=== PATIENT | female | born 2000 | race American Indian/Alaskan Native ===

== ENCOUNTER 2024-12-10 14:56 | Emergency (ER) | payer SELFPAY ==
--- NOTE | 2024-12-10 14:57 | ED_ITS ---
HPI - Dental/Oral General Chief complaint: Dental/Oral Stated complaint: tooth pain Time Seen by Provider: 12/10/24 15:06 Source: patient, RN notes reviewed and old records reviewed Mode of arrival: ambulatory Limitations: no limitations History of Present Illness HPI Narrative: 24-year-old female presents to [facility] with dental pain to the right upper middle molar. Patient reports that it started yesterday. Has a significantly decayed tooth. Has not been to a dental provider in many years. Treatment prior to arrival: topical analgesic Related Data Allergies Allergy/AdvReac Type Severity Reaction Status Date / Time No Known Allergies Allergy Verified 12/10/24 15:06 Review of Systems 2 Review of Systems: All systems reviewed & are unremarkable except as noted in HPI and below Constitutional: Constitutional: Reports no additional constitutional complaints ENT: Reports as per HPI and Reports dental pain Integumentary/Breasts: Skin/Breast: Reports system reviewed and no additional complaints, except as docu PMFSH Comments At the time of my signature, I reviewed and agree with the nursing past medical, surgical, social, and family history. There is no relevant family history pertinent to the patient complaint. Exam 2 Const: General: cooperative, healthy appearing, no acute distress, well developed, alert, uncomfortable and well nourished Nutritional Appearance: w ell nourished Orientation/consciousness: patient oriented x3 Limitations: no limitations HENMT: Head: normal to inspection Ears: hearing grossly normal bilaterally and external ears normal Mouth: Yes Normal oral and palatal mucosa present, Yes lip normal, Yes tongue normal and Yes moist mucous membranes Teeth and gingiva: abnormal tooth and associated gingiva upper right second molar tender and with associated gingival edema and fair dentition Teeth image: 1. decayed. Surrounding gingival erythema, swelling Throat: posterior oropharynx normal, uvula midline and no uvular edema Eyes: General: appearance normal, both eyes and all related structures A lignment and Position: alignment normal Neck: Neck: normal visual inspection, full ROM, no lymphadenopathy and no meningeal signs Chest: Chest palpation & inspection: normal inspection of the chest Resp: Effort & Inspection: normal respiratory effort and able to speak in complete sentences Cardio: Rate: regular rate Skin: General skin exam: normal color and no rashes or lesions noted Neuro: General: patient oriented x3, gait normal, moves all extremities and no meningeal signs Cognition (Neuro): normal cognition Speech: normal speech Gait exam (Neuro): Normal gait present Extrem: General: normal to inspection, full ROM, capillary refill normal and normal gait Psych: Appearance: grossly normal and well kempt Mental Status: mental status grossly normal Speech and movement: Normal speech and movement present and Clear speech present Affect: normal affect Attitude: cooperative Course Course Level of Care: Express Care Visit Vital Signs Vital signs: Vital Signs Temperature 97.2 F L 12/10/24 15:06 Pulse Rate 93 12/10/24 15:06 Respiratory Rate 18 12/10/24 15:06 Blood Pressure 119/66 12/10/24 15:06 Pulse Oximetry 100 12/10/24 15:06 Oxygen Delivery Room Air 12/10/24 15:06 Temperature 97.2 F L 12/10/24 15:06 Pulse Rate 93 12/10/24 15:06 Respiratory Rate 18 12/10/24 15:06 Blood Pressure 119/66 12/10/24 15:06 Pulse Oximetry 100 12/10/24 15:06 Oxygen Delivery Room Air 12/10/24 15:06 Reviewed MDM - Dental/Oral MDM Narrative Medical decision making narrative: Patient sitting in exam room. Patient is nontoxic however appears uncomfortable. Vitals are stable. Patient presents with right upper dental discomfort Significant dental decay is noted. Patient prescribed antibiotics, list of dental providers given. Patient appropriate for outpatient treatment and follow-up Discharge instructions reviewed with patient, as well as provided in writing per nursing staff. The instructions also include specific and strict return/GO TO THE ER as well as f/u information. All questions have been answered, and the patient deny any further questions with discharge and discharge plan. Some parts of this dictation were generated by voice recognition software and may contain typographical and/or grammatical inaccuracies. Differential Diagnosis Differential diagnosis: Likely gingival abscess, dental caries, toothache, dental abscess, fracture of tooth and aphthous ulcer Critical Care Time Critical Care Time Critical Care Time: No Discharge Plan Discharge Clinical Impression: Dental decay, Dental abscess Patient Disposition: Home Condition: Stable Instructions: Antibiotic Form, Dental Abscess (ED) Additional Instructions: Finish the entire course of antibiotics & use a mouthwash. After every time you eat be sure to use salt water rinses. Apply ice to face to help with pain. Take Tylenol 500mg alternating with Motrin 600mg as needed for pain. You can alternate every 4 hours You need to follow-up with a dental provider as soon as possible for further evaluation and treatment. A list of dental providers has been given to you Follow up with a Primary Care Provider (PCP) about medical needs. A PCP can help keep you healthy by preventive medicine and screening. Go to the ER for New or worsening symptoms. Patient Language: Macedonian Prescriptions: New amoxicillin 875 mg tablet 875 mg PO Q12H Qty: 20 0RF Follow-up/Referrals: UNKNOWN,DOCTOR [Primary Care Provider] - Stand Alone Forms: Work/School Release IP Time of Disposition: 15:12
--- OUTSIDE RECORDS SUMMARY | 2024-12-10 15:03 | XMS_ITS | Encounter Summary ---
Author Organization [facility] [employer] [facility] Address [address] [place] [address] [address] Kathy Gomez, [place] [address] Care Team Providers Care Assistant Chief Nursing Officer Name Role Phone Provider, No Attributed RESOURCE Unavailable Unavailable Sharlene Felix DO Primary Care Provider Harsha Pierre MD Unavailable Vidya Wolf MD Unavailable [phone] Provider, No Attributed RESOURCE Unavailable Unavailable Encounter Details Date Type Department Care Team (Late st Contact Info) Description 08/13/2020 Lab Requisition [facility] Kathy Gomez [place] Don Castaneda MD [address] [place] [address] Social History Tobacco Use Types Packs/Day Years Used Date Smoking Tobacco: Passive Smo ke Exposure - Never Smoker Smokeless Tobacco: Never Alcohol Use Standard Drinks/Week Comments No 0 (1 standard drink = 0.6 oz pur e alcohol) Sexually Active Control Partners Comments Never Comments No Sex and Gender Information Value Date Recorded Sex Assigned at Not on file Legal Sex Female 4:22 AM CDT Gender Identity Not on file Sexual Orientation Not on file documented as of this encounter Plan of Treatment Not on file documented as of this encounter Procedures Procedure Name Priority Date/Time Associated Diagnosis Comments HEPATITIS B SURFACE ANTIBODY, IMMUNE STATUS Routine 08/13/2020 1:33 PM WALL MAN documented in this encounter Results * HEPATITIS B SURFACE ANTIBODY (08/13/2020 1:33 PM WALL MAN) HBs Antibody 297.3 mIU/mL 08/13/2020 11:51 PM WALL MAN [facility] Blood BLOOD SPECIMEN / Unknown 08/13/2020 1:33 PM WALL MAN 08/13/2020 3:12 PM WALL MAN Narrative [facility] - 08/13/2020 11:51 PM WALL MAN Reference Ranges: <8.0 mIU/mL Individual is not considered immune to HBV infection. 8.0 - 11.9 mIU/mL The immune status of the individual should be further assessed by considering other factors, such as clinical status, follow-up testing, associated risk factors, and use of additional diagnostic information. >/=12.0 mIU/mL Individual is considered immune to HBV infection. us Don Castaneda MD LAB BLOOD Final Res ult [facility] [address] [place] [address] documented in this encounter Visit Diagnoses Not on filedocumented in this encounter Care Teams Assistant Chief Nursing Officer Relationship Specialty Start Date End Date Provider, No Attributed, RESOURCE [address] PCP - Attributed Provider 05/20/16 08/12/22 Sharlene Felix DO [address], [place] [id number] PCP - General 06/13/19 Vidya Wolf MD [address] [place] [id number] PCP - Attributed Provider 08/13/22 08/12/24 Provider, No Attributed, RESOURCE [address] PCP - Attributed Provider 08/13/24 Harsha Pierre MD [address] [place] [address] Primary Oncologist Hematology and Oncology (Internal Medicine) 08/05/22 documented as of this encounter
--- OUTSIDE RECORDS SUMMARY | 2024-12-10 15:03 | XMS_ITS | Encounter Summary ---
Author Organization [facility] Address [address] [place] [address] [address] Kathy [place] [address] Care Team Providers Care Digital Content Marketing Manager Name Role Phone Provider, No Attributed RESOURCE Unavailable Unavailable Sharlene Felix DO Primary Care Provider Harsha Pierre MD Unavailable [phone] Vidya Wolf MD Unavailable [phone] Provider, No Attributed RESOURCE Unavailable Unavailable Encounter Details Date Type Department Care Team (Late st Contact Info) Description 04/05/2020 Lab Requisition [facility] Patient Financial Services [place] Holman Clayton G, MD [address] [place] [address] Social History Tobacco Use Types Packs/Day Years [...] Procedure Name Priority Date/Time Associated Diagnosis Comments SARS-COV-2 RNA, QUALITATIVE REAL-TIME RT-PCR Routine 04/04/2020 12:06 PM CDT documented in this encounter Results * SARS-COV-2 RNA, QUALITATIVE REAL-TIME RT-PCR (04/04/2020 12:06 PM CDT) SARS-CoV-2 Specimen Source Nasopharynx 04/07/2020 7:56 PM CDT [facility] Patient Race Unknown 04/07/2020 7:56 PM CDT [facility] Patient Ethnicity Unknown 04/07/2020 7:56 PM CDT [facility] SARS-CoV-2 RNA Undetected Undetected 04/07/2020 7:56 PM CDT [facility] Comment: SARS-CoV-2 RNA absent. This result does not rule out COVID-19 in the patient, as the sensitivity of the test depends on the timing of the specimen collection and the quality of the specimen. Result should be correlated with patient's history and clinical presentation. Method Summary See Comments 04/07/20 7:56 PM CDT [facility] Comment: CECI- This test uses the ceci SARS-CoV-2 assay ([employer] and is performed on the ceci [employer] System. It has received Emergency Use Authorization (EUA) by the U.S. Food and Drug Administration. Performance characteristics were verified by [facility] in a manner consistent with CLIA requirements. Fact sheets for this Emergency Use Authorization (EUA) can be found at the following links: https://www.fda.gov/media/817431/download for Healthcare Providers https://www.fda.gov/media/393024/download for Patients Test Performed by: [facility] - [address] [address] Drag Down: Vaughn Ugarte M.D. Ph.D.; CLIA# [id number] Respiratory ENTIRE NASOPHARYNX / Unknown 04/04/2020 12:06 PM CDT 04/05/2020 12:15 PM CDT us Don Castaneda MD LAB NON BLOOD Final Res ult [facility] [address] [place] [address] documented in this encounter Visit Diagnoses Not on filedocumented in this encounter Additional Health Concerns Infection Onset Date Last Indicated Resolved Time COVID-19 04/10/2020 04/10/2020 04/20/2020 11:5 6 PM CDT documented as of this encounter Care Teams Digital Content Marketing Manager Relationship Specialty Start Date End Date Provider, No Attributed, RESOURCE [address] PCP - Attributed Provider 05/20/16 08/12/22 Sharlene Felix DO [address] [facility], [place] [id number] PCP - General 06/13/19 Vidya Wolf MD [address] [facility], [place] [id number] PCP - Attributed Provider 08/13/22 08/12/24 Provider, No Attributed, RESOURCE [address] PCP - Attributed Provider 08/13/24 Harsha Pierre MD [address] [place] [address] Primary Oncologist Hematology and Oncology (Internal Medicine) 08/05/22 documented as of this encounter
--- OUTSIDE RECORDS SUMMARY | 2024-12-10 15:03 | XMS_ITS | Clinical Summary ---
Author Organization [employer] [facility] Address [address] [place] [address] [address] [place] [address] Care Team Providers Care Supervisor Keymodule Assembly Name Role Phone FelixSharlene gan Primary Care Provider Harsha Pierre MD Unavailable [phone] Provider, No Attributed RESOURCE Unavailable Unavailable Allergies Active Allergy Reactions Criticality Noted Date Comments Fragrances Hives (High) High 11/14/2021 Nickel Rash Low 11/14/2021 Medications ibuprofen (ADVIL;MOTRIN-I B) 200 mg tablet Take 200 mg by mouth Every 4 hours as needed. Active ferrous sulfate (65 MG FE PER 325 MG TABLET) 325 mg tablet Take 325 mg by mouth 2 times a day Active desogestrel-eth inyl estradiol (GYJYT-UHHZ-79) 0.15 mg-30 mcg tablet 08/16/2020 Active cyanocobalamin (VITAMIN B-12) 1000 MCG sublingual tabletIndicatio ns:Low serum vitamin B12 Dissolve 1 tablet (1,000 mcg) under the tongue 1 time per day 30 tablet 11 08/06/2022 Active Active Problems Problem Noted Date Diagnosed Date Prolonged pt (prothrombin time) 08/06/2022 Low serum vitamin B12 08/06/2022 Iron deficiency anemia due to chronic blood loss 08/03/2022 Menorrhagia with regular cycle 07/31/2022 Iron deficiency anemia 11/21/2021 Anemia, unspecified 10/17/2021 Resolved Problems Problem Noted Date Diagnosed Date Resolved Date Menometrorrhagia 11/21/2021 07/31/2022 Microcytic hypochromic anemia 11/21/2021 07/31/2022 Acute posthemorrhagic anemia 10/17/2021 07/31/2022 Excessive and frequent menst ruation with irregular cycle 10/17/2021 07/31/2022 Immunizations Immunization Administration Dates Next Due DTaP(Infanrix) 02/10/2005, 2,02/25/2001,12/29,2000 HEP B, peds/adol 02/25/2001,2000, 1 HEP B,adult 09/07/2019 HIB,unspecified 12/24/2001, 1,2000,10/01 Hep A, Unspecified 05/09/2009,05/09/2009, 005 INFLUENZA SINGLE DOSE 0.5ML 6 MONTHS AND UP 07/03/2023,05/08/2022 INFLUENZA VACCINE ADJUVANT(F LUAD) 65 YEARS AND UP 07/03/2023 IPV 02/10/2005, 2,2000,10/01 Influenza Vaccine,unspecified 05/16/2020 ,08/08/2019,07/29/2011,05/13,05/09/2009 MMR 02/10/2005,12/24/2001 Meningococcal MCV40(Menveo) 03/09/2017 Moderna COVID-19 Vaccine (Re d Top)12 years and up 07/11/2021,06/10/2021 Pneumococcal Conjugate, Unspecified 02/25/2001,0 01/05/2001,2000 TDAP 03/09/2017 Tuberculin Skin Test PPD Intradermal 02/10/2005 Varicella 07/29/2011,12/24/2001 Family History Medical History Relation Comments Diabetes Brother Thyroid Disease Father Other Mother anemia, aub hyst erectomy Hypertension Sister Relation Status Comments Brother Alive Father Alive Maternal Grandfather Maternal Grandmother Mother Alive Paternal Grandfather Paternal Grandmother Sister Alive Social History Tobacco Use Types Packs/Day Years Used Date Smoking Tobacco: Former Cigarettes Smokeless Tobacco: Never Tobacco Cessation:Counseling Given: Not Answered Comments:Quit fall 2021 Alcohol Use Standard Drinks/Week Comments Yes 0 (1 standard drink = 0.6 oz pur e alcohol) occasional AUDIT-C Answer Date Recorded Q1: How often do you have a drink containing alc ohol? 2-4 times a month 02/07/2021 Q2: How many drinks containi ng alcohol do you have on a typical day when you are drinking? 3 or 4 02/07/2021 Q3: How often do you have si x or more drinks on one occasion? Less than monthly 02/07/2021 Sexually Active Control Partners Comments Yes Male not using contr aception Comments No Sex and Gender Information Value Date Recorded Sex Assigned at Not on file Legal Sex Female 4:22 AM CDT Gender Identity Not on file Sexual Orientation Not on file Occupation Industry Job Start Date Job End Date works at [employer]- working on [employer] Not on file Not on file Not on file Last Filed Vital Signs Vital Sign Reading Time Taken Comments Blood Pressure 102/62 08/07/2022 1:25 PM RENEWABLE ENERGY PROJECT MANAGER Pulse 74 08/07/2022 1:25 PM RENEWABLE ENERGY PROJECT MANAGER Temperature 36.2 C (97.1 F) 08/07/2022 1:25 PM RENEWABLE ENERGY PROJECT MANAGER Respiratory Rate 16 08/07/2022 1:25 PM RENEWABLE ENERGY PROJECT MANAGER Oxygen Saturation 99% 08/07/2022 1:25 PM RENEWABLE ENERGY PROJECT MANAGER Inhaled Oxygen Concentration - - Weight 81.6 kg (180 lb) 08/06/2022 8:09 AM RENEWABLE ENERGY PROJECT MANAGER Height 157.5 cm (5' 2 ) 08/06/2022 8:09 AM RENEWABLE ENERGY PROJECT MANAGER Body Mass Index 32.92 08/06/2022 8:09 AM RENEWABLE ENERGY PROJECT MANAGER Plan of Treatment Health Maintenance Due Date Last Done Comments Hepatitis C Screening 2000 HIV One Time Screening Ages 15-65 2015 HPV Vaccine (1 - 3-dose series) 2015 Lipid Screening 2021 Chlamydia Screening if Sexually Active 07/31/2023 07/31/2022 Pap Smear 07/31/2023 07/31/2022 Covid-19 Vaccine ( - season) 2024 07/11/2021, 06/10/2021 Influenza Vaccine (#1) 2024 , 07/03/2023, 05/08/2022, Additional history exists TDAP/TD VACCINE (2 - Td or Tdap) 03/09/2027 03/09/2017 Pneumococcal Vaccine (0-5yr; and At-risk 6-49yr) Aged Out 02/25/2001, 01/05/2001, 2000 No longer eligible based on patient's age to complete this topic Hepatitis B Vaccine Completed 09/07/2019, 02/25/2001, 2000, Additional history exists Procedures Procedure Name Priority Date/Time Associated Diagnosis Comments CHLAMYDIA AND NEISSERIA GONORRHEA NUCLEIC ACID DETECTION Routine 07/31/2022 2:23 PM RENEWABLE ENERGY PROJECT MANAGER Iron deficiency anemia due to chronic blood loss LIQUID BASED PAP TEST Routine 07/31/2022 1:44 PM RENEWABLE ENERGY PROJECT MANAGER Iron deficiency anemia due to chronic blood loss from Last 3 Months or Most Recently Relevant to Health Maintenance Results * CHLAMYDIA AND NEISSERIA GONORRHEA NUCLEIC ACID DETECTION (07/31/2022 2:23 PM RENEWABLE ENERGY PROJECT MANAGER) C. trachomatis Nuc. Acid Not Detected Not Detected [employer] YFLL[employer]RVP[employer] ([facility]) 08/01/2022 12:23 PM RENEWABLE ENERGY PROJECT MANAGER [facility] N. gonorrhea Nuc. Acid Not Detected Not Detected [employer] BXKI-YOA-3_L [employer] ([facility]) 08/01/2022 12:23 PM RENEWABLE ENERGY PROJECT MANAGER [facility] Misc SPECIMEN FROM UTERINE CERVIX / Unknown 07/31/2022 2:23 PM RENEWABLE ENERGY PROJECT MANAGER 07/31/2022 2:23 PM RENEWABLE ENERGY PROJECT MANAGER Narrative [facility] - 08/01/2022 12:23 PM RENEWABLE ENERGY PROJECT MANAGER This test was performed by polymerase chain reaction (PCR) on the Jayme 6800 instrument. us Vidya Wolf MD LAB NON BLOOD Final Result [facility] [address] [facility], [place] [id number] * (ABNORMAL) LIQUID BASED PAP TEST (07/31/2022 1:44 PM RENEWABLE ENERGY PROJECT MANAGER) TRANSIT PLANNING DIRECTOR General Categorization Epithelial cell abnormality(A) 08/07/2022 8:40 AM [facility] TRANSIT PLANNING DIRECTOR Interpretation Low grade squamous intraepithelial lesion(A) 08/07/2022 8:40 AM [facility] at 0840 RENEWABLE ENERGY PROJECT MANAGER TRANSIT PLANNING DIRECTOR SPECIMEN ADEQUACY Satisfactory for evaluation, endocervical/transf ormation zone component present 08/07/2022 8:40 AM [facility] TRANSIT PLANNING DIRECTOR Automated Examination ThinPrep - Imaged 08/07/2022 8:40 AM [facility] CASE REPORT Gynecologic Cytology Report Case: [id number] Authorizing Provider: Vidya Wolf MD Collected: 07/31/2022 1344 Ordering Location: [facility] Received: 08/01/2022 0605 First Screen: Gavi Holloway Pathologist: Thuy Kaur MD Specimen: LIQUID-BASED PAP SMEAR, Cervical and Endocervical 08/07/2022 8:40 AM [facility] Reflex Testing? No HPV (recommended ages 21-24) 08/07/2022 8:40 AM [facility] Disclaimer This case met the criteria for Pathologist review. The Pap test is a screening test with an inherent, irreducible false negative and false positive rate. A negative result does not exclude the possibility of clinical disease. Regular, routine screening is recommended. All gynecologic cytology is screened by cytotechnologists located at [facility] - [address] [place] [id number]; [facility] - [address], [address] [place] [phone]; [facility] Pathology [facility] - [address] [phone]; or [facility] Pathology - [address] [address]. 08/07/2022 8:40 AM [facility] EMBEDDED IMAGES 8:40 AM [facility] Not Applicable ENDOCERVICAL STRUCTURE / Unknown 07/31/2022 1:44 PM RENEWABLE ENERGY PROJECT MANAGER 08/01/2022 6:05 AM RENEWABLE ENERGY PROJECT MANAGER Comment:Menstrual Status: Tung don's last menstrual period was 07/07/2022. us Vidya Wolf MD PATHOLOGY Final Result [facility] [address] [place] [phone] from Last 3 Months or Most Recently Relevant to Health Maintenance Care Teams Supervisor Keymodule Assembly Relationship Specialty Start Date End Date Sharlene Felix DO [address] [place] [address] PCP - General 06/13/19 Provider, No Attributed, RESOURCE [address] PCP - Attributed Provider 08/13/24 Harsha Pierre MD [address] [facility] [place] [address] Primary Oncologist Hematology and Oncology (Internal Medicine) 08/05/22
--- OUTSIDE RECORDS SUMMARY | 2024-12-10 15:03 | XMS_ITS | Encounter Summary ---
Author Organization [facility] Address [address] [place] [address] [address] Kathy [place] [address] Care Team Providers Care Matrix Bath Operator Name Role Phone Provider, No Attributed RESOURCE Unavailable Unavailable Sharlene Felix DO Primary Care Provider Harsha Pierre MD Unavailable [phone] Vidya Wolf MD Unavailable [phone] Provider, No Attributed RESOURCE Unavailable Unavailable Encounter Details Date Type Department Care Team (Late st Contact Info) Description 03/29/2020 Lab Requisition [facility] Patient Financial Services [place] Holman Clayton G, MD [address] [place] [address] Social History Tobacco Use Types Packs/Day Years [...] Comments SARS-COV-2 RNA, QUALITATIVE REAL-TIME RT-PCR Routine 03/29/2020 3:00 PM CDT documented in this encounter Results * SARS-COV-2 RNA, QUALITATIVE REAL-TIME RT-PCR (03/29/2020 3:00 PM CDT) SARS-CoV-2 Specimen Source Nasopharynx 04/01/2020 4:55 AM CDT [facility] Patient Race Unknown 04/01/2020 4:55 AM CDT [facility] Patient Ethnicity Unknown 04/01/2020 4:55 AM CDT [facility] SARS-CoV-2 RNA Undetected Undetected 04/01/2020 4:55 AM CDT [facility] Comment: SARS-CoV-2 RNA absent. This result does not rule out COVID-19 in the patient, as the sensitivity of the test depends on the timing of the specimen collection and the quality of the specimen. Result should be correlated with patient's history and clinical presentation. Method Summary See Comments 04/01/20 20 4:55 AM CDT [facility] Comment: CECI- This test uses the ceci SARS-CoV-2 assay ([employer] and is performed on the ceci yavalu0 System. It has received Emergency Use Authorization (EUA) by the U.S. Food and Drug Administration. Performance characteristics were verified by [facility] in a manner consistent with CLIA requirements. Fact sheets for this Emergency Use Authorization (EUA) can be found at the following links: https://www.fda.gov/media/229689/download for Healthcare Providers https://www.fda.gov/media/125379/download for Patients Test Performed by: [facility] - [address] [address] Rustic Fence Builder: Vaughn Ugarte M.D. Ph.D.; CLIA# [id number] Respiratory ENTIRE NASOPHARYNX / Unknown 03/29/2020 3:00 PM CDT 03/29/2020 11:26 PM CDT us Don Castaneda MD LAB NON BLOOD Final Res ult [facility] [address] [place] [address] documented in this encounter Visit Diagnoses Not on filedocumented in this encounter Additional Health Concerns Infection Onset Date Last Indicated Resolved Time COVID-19 04/10/2020 04/10/2020 04/20/2020 11:5 6 PM CDT documented as of this encounter Care Teams Matrix Bath Operator Relationship Specialty Start Date End Date Provider, No Attributed, RESOURCE [address] PCP - Attributed Provider 05/20/16 08/12/22 Sharlene Felix DO [address] [facility], [place] [id number] PCP - General 06/13/19 Vidya Wolf MD [address] [facility], [place] [id number] PCP - Attributed Provider 08/13/22 08/12/24 Provider, No Attributed, RESOURCE [address] PCP - Attributed Provider 08/13/24 Harsha Pierre MD [address] [place] [address] Primary Oncologist Hematology and Oncology (Internal Medicine) 08/05/22 documented as of this encounter
--- OUTSIDE RECORDS SUMMARY | 2024-12-10 15:03 | XMS_ITS | Encounter Summary ---
Author Organization [facility] Study [facility] Address [address] [place] [address] [address] [place] [address] Care Team Providers Care Pool Player Name Role Phone Provider, No Attributed RESOURCE Unavailable Unavailable Sharlene Felix DO Primary Care Provider Harsha Pierre MD Unavailable Vidya Wolf MD Unavailable [phone] Provider, No Attributed RESOURCE Unavailable Unavailable Encounter Details Date Type Department Care Team (Late st Contact Info) Description 04/11/2020 Lab Requisition [facility] Patient Financial Services [place] Holman Clayton G, MD [address] [place] [address] Social History Tobacco Use Types Packs/Day Years [...] Comments SARS-COV-2 RNA, QUALITATIVE REAL-TIME RT-PCR Routine 04/10/2020 4:00 PM CDT documented in this encounter Results * (ABNORMAL) SARS-COV-2 RNA, QUALITATIVE REAL-TIME RT-PCR (04/10/2020 4:00 PM CDT) SARS CoV RNA, RT PCR Detected( A) Not Detected 04/12/2020 5:47 PM CDT [facility] Respiratory ENTIRE NASOPHARYNX / Unknown 04/10/2020 4:00 PM CDT 04/11/2020 3:55 PM CDT Narrative [facility] - 04/12/2020 5:47 PM CDT Testing performed by real-time polymerase chain reaction (RT-PCR) on the [employer] instrument. This assay is for in vitro diagnostic use under FDA Emergency Use Authorization only. Optimal performance of this test requires appropriate specimen collection, storage, and transport to the test site. Detection of SARS-CoV-2 RNA may be affected by sample collection methods, patient factors (eg, presence of symptoms), and/or stage of infection. False-negative results may arise from degradation of viral RNA during shipping/storage. Results should be interpreted by a trained professional in conjunction with the patient s history and clinical signs and symptoms, and epidemiological risk factors. Negative (Not Detected) results do not preclude infection with the SARS-CoV-2 virus and should not be the sole basis of patient treatment/management or public health decision. Follow up testing should be performed according to the current CDC recommendations. Don Castaneda MD LAB NON BLOOD Final Res ult [facility] [address] [place] [address] documented in this encounter Visit Diagnoses Not on filedocumented in this encounter Additional Health Concerns Infection Onset Date Last Indicated Resolved Time COVID-19 04/10/2020 04/10/2020 04/20/2020 11:5 6 PM CDT documented as of this encounter Care Teams Pool Player Relationship Specialty Start Date End Date Provider, No Attributed, RESOURCE [address] PCP - Attributed Provider 05/20/16 08/12/22 Sharlene Felix DO [address] [place] JIMENEZ [id number] PCP - General 06/13/19 Vidya Wolf MD [address] [facility] TACO STRATTON TONY, M[place] [id number] PCP - Attributed Provider 08/13/22 08/12/24 Provider, No Attributed, RESOURCE [address] PCP - Attributed Provider 08/13/24 Harsha Pierre MD [address] [place], [place] [phone] Primary Oncologist Hematology and Oncology (Internal Medicine) 08/05/22 documented as of this encounter
--- OUTSIDE RECORDS SUMMARY | 2024-12-10 15:03 | XMS_ITS | Encounter Summary ---
Author Organization [facility] Address [address] [place] [address] [address] Kathy Gomez, [place] [address] Care Team Providers Care Account Manager Employee Benefits Name Role Phone Provider, No Attributed RESOURCE Unavailable Unavailable Sharlene Felix DO Primary Care Provider Harsha Pierre MD Unavailable [phone] Vidya Wolf MD Unavailable [phone] Provider, No Attributed RESOURCE Unavailable Unavailable Encounter Details Date Type Department Care Team (Late st Contact Info) Description 08/08/2019 Lab Requisition [facility] Kathy Gomez [place] Don Castaneda MD [address] [place] [address] Social History Tobacco Use Types Packs/Day Years [...] Procedure Name Priority Date/Time Associated Diagnosis Comments QUANTIFERON Routine 08/08/2019 12:52 PM NONPROFIT FUNDRAISER HEPATITIS B SURFACE ANTIBODY, IMMUNE STATUS Routine 08/08/2019 12:52 PM NONPROFIT FUNDRAISER documented in this encounter Results * QUANTIFERON (08/08/2019 12:52 PM NONPROFIT FUNDRAISER) Quantiferon Negative Negative 08/10/2019 11:43 AM NONPROFIT FUNDRAISER [facility] Comment: M. tuberculosis infection unlikely, but cannot be excluded especially when: 1. Illness is consistent with TB disease. 2. Likelihood of progression to disease is increased (e.g. due to immunosuppression). Blood BLOOD SPECIMEN / Unknown 08/08/2019 12:52 PM NONPROFIT FUNDRAISER 08/08/2019 1:09 PM NONPROFIT FUNDRAISER [facility] - 08/10/2019 11:43 AM NONPROFIT FUNDRAISER Interferon-gamma values should not be used to monitor disease progression or response to therapy. Don Castaneda MD LAB BLOOD Final Res ult Performing Organization Address [facility]/ZIP Co de Phone Number [facility] [address] [phone] * HEPATITIS B SURFACE ANTIBODY (08/08/2019 12:52 PM NONPROFIT FUNDRAISER) HBs Antibody <4.2 mIU/mL 08/08/2019 11:07 PM NONPROFIT FUNDRAISER [facility] Blood BLOOD SPECIMEN / Unknown 08/08/2019 12:52 PM NONPROFIT FUNDRAISER 08/08/2019 1:09 PM NONPROFIT FUNDRAISER [facility] - 08/08/2019 11:07 PM NONPROFIT FUNDRAISER Reference Ranges: <8.0 mIU/mL Individual is not considered immune to HBV infection. 8.0 - 11.9 mIU/mL The immune status of the individual should be further assessed by considering other factors, such as clinical status, follow-up testing, associated risk factors, and use of additional diagnostic information. >/=12.0 mIU/mL Individual is considered immune to HBV infection. Don Castaneda MD LAB BLOOD Final Res ult Performing Organization Address [facility]/ZIP Co de Phone Number [facility] [address] [phone] documented in this encounter Visit Diagnoses Not on filedocumented in this encounter Additional Health Concerns Infection Onset Date Last Indicated Resolved Time COVID-19 04/10/2020 04/10/2020 04/20/2020 11:5 6 PM CDT documented as of this encounter Care Teams Account Manager Employee Benefits Relationship Specialty Start Date End Date Provider, No Attributed, RESOURCE [address] PCP - Attributed Provider 05/20/16 08/12/22 Sharlene Felix DO [address] [facility], [place] [id number] PCP - General 06/13/19 Vidya Wolf MD [address] [place] [address], [place] [id number] PCP - Attributed Provider 08/13/22 08/12/24 Provider, No Attributed, RESOURCE [address] PCP - Attributed Provider 08/13/24 Harsha Pierre MD [address] [place], [place] [phone] Primary Oncologist Hematology and Oncology (Internal Medicine) 08/05/22 documented as of this encounter
--- OUTSIDE RECORDS SUMMARY | 2024-12-10 15:03 | XMS_ITS | Encounter Summary ---
Author Organization [facility] Address [address] [place] [address] [address] Kathy Gomez, [place] [address] Care Team Providers Care Trade Show Specialist Name Role Phone Provider, No Attributed RESOURCE Unavailable Unavailable Sharlene Felix DO Primary Care Provider Harsha Pierre MD Unavailable [phone] Vidya Wolf MD Unavailable [phone] Provider, No Attributed RESOURCE Unavailable Unavailable Encounter Details Date Type Department Care Team (Late st Contact Info) Description 01/17/2020 Lab Requisition [facility] Kathy Gomez MIRAN[place] Don Castaneda MD [address] [place] [address] Social History Tobacco Use Types Packs/Day Years [...] on file documented as of this encounter Visit Diagnoses Not on filedocumented in this encounter Additional Health Concerns Infection Onset Date Last Indicated Resolved Time COVID-19 04/10/2020 04/10/2020 04/20/2020 11:5 6 PM CDT documented as of this encounter Care Teams Trade Show Specialist Relationship Specialty Start Date End Date Provider, No Attributed, RESOURCE [address] PCP - Attributed Provider 05/20/16 08/12/22 Sharlene Felix DO [address] [place] [address] PCP - General 06/13/19 Vidya Wolf MD [address] [place] [address], [place] [id number] PCP - Attributed Provider 08/13/22 08/12/24 Provider, No Attributed, RESOURCE [address] PCP - Attributed Provider 08/13/24 Harsha Pierre MD [address] [place] [address] Primary Oncologist Hematology and Oncology (Internal Medicine) 08/05/22 documented as of this encounter
--- OUTSIDE RECORDS SUMMARY | 2024-12-10 15:03 | XMS_ITS | Encounter Summary ---
Author Organization [facility] Address [address] [place] [address] [address] [place] [address] Care Team Providers Care Printing Table Hand Name Role Phone Provider, No Attributed RESOURCE Unavailable Unavailable Sharlene Felix DO Primary Care Provider [phone] Harsha Pierre MD Unavailable [phone] Vidya Wolf MD Unavailable [phone] Provider, No Attributed RESOURCE Unavailable Unavailable Encounter Details Date Type Department Care Team (Late st Contact Info) Description 06/17/2021 Lab Requisition [facility] [place] Ocho[place] Don Castaneda MD [address] [place] [address] Social History Tobacco Use Types Packs/Day Years Used Date Smoking Tobacco: Every Day Cigarettes Smokeless Tobacco: Never Alcohol Use Standard Drinks/Week Comments Yes 0 (1 standard drink = 0.6 oz pur e alcohol) AUDIT-C Answer Date Recorded Q1: How often [...] monthly 02/07/2021 Sexually Active Control Partners Comments Never Comments No Sex and Gender Information Value Date Recorded Sex Assigned at Not on file Legal Sex Female 4:22 AM CDT Gender Identity Not on file Sexual Orientation Not on file documented as of this encounter Plan of Treatment Not on file documented as of this encounter Procedures Procedure Name Priority Date/Time Associated Diagnosis Comments QUANTIFERON Routine 06/17/2021 10:24 AM RAIL LAYER documented in this encounter Results * QUANTIFERON (06/17/2021 10:24 AM RAIL LAYER) Quantiferon Negative Negative 06/19/2021 12:35 PM RAIL LAYER [facility] Comment: M. tuberculosis infection unlikely, but cannot be excluded especially when: 1. Illness is consistent with TB disease. 2. Likelihood of progression to disease is increased (e.g. due to immunosuppression). Blood BLOOD SPECIMEN / Unknown 06/17/2021 10:24 AM RAIL LAYER 06/17/2021 10:58 AM RAIL LAYER Narrative [facility] - 06/19/2021 12:35 PM RAIL LAYER Interferon-gamma (TB1 and TB2) values should not be used to monitor disease progression or response to therapy. us Don Castaneda MD LAB BLOOD Final Res ult [facility] [address] [place] [phone] documented in this encounter Visit Diagnoses Not on filedocumented in this encounter Care Teams Printing Table Hand Relationship Specialty Start Date End Date Provider, No Attributed, RESOURCE [address] PCP - Attributed Provider 05/20/16 08/12/22 Sharlene Felix DO [address] [place] [address] PCP - General 06/13/19 Vidya Wolf MD [address] [facility] [place] [address] PCP - Attributed Provider 08/13/22 08/12/24 Provider, No Attributed, RESOURCE [address] PCP - Attributed Provider 08/13/24 Harsha Pierre MD [address] [facility] [address] [place] [address] Primary Oncologist Hematology and Oncology (Internal Medicine) 08/05/22 documented as of this encounter
[2024-12-10 15:06] VITALS: BP 119/66; PULSE 93; RESP 18; TEMP 36.2; O2SAT 100
== END 2024-12-10 15:15 | disposition home or self-care (01) ==
PROVIDERS: Emergency Provider Nurse Practitioner
DX: K02.9 Dental caries, unspecified (principal); K04.7 Periapical abscess without sinus
CPT/HCPCS: 99213; G0463